=== PATIENT | female | born 1955 | race Caucasian/White ===

== ENCOUNTER 2017-06-05 05:47 | Inpatient (IN) | payer OTHER ==
[2017-05-18 08:30] VITALS: Ht 157.5 cm; Wt 65.9 kg
--- NOTE | 2017-06-04 11:42 | History and Physical ---
History & Physical Date Jun 04, 2017. Chief Complaint right knee pain History of Present Illness The patient is a 62 year old female with complaints of right knee pain for several years. Has tried nsaids and injections with no relief. pt only has rom of 85 degrees. Pt is ready for Right TKA Additional History Hepatic Disease: No Endocrine Disorder: No Kidney Disease: No Hypertension: Yes Heart Disease: No Bleeding Tendencies: No Infectious Diseases: No Allergies Coded Allergies: No Known Allergies (Unverified , 05/18/17) Home Medications Scheduled Cholecalciferol (Vitamin D), 5,000 UNITS PO QAM Fluticasone Furoate-Vilanterol (Breo Ellipta), 1 PUFF INH QAM Hydrochlorothiazide (Hctz), 25 MG PO QAM Lisinopril (Prinivil), 10 MG PO QAM Misc Natural Products (Turmeric Curcumin), 1 CAP PO QAM Multiple Vitamin (Multi Vitamin), 1 TAB PO QAM Physical Examination Skin: warm/dry, no rash Eyes: normal inspection, EOMI, sclerae normal ENT: normal ENT inspection, pharynx normal Head: normocephalic, atraumatic Neck: supple, no adenopathy, trachea midline Respiratory/Chest: lungs clear, normal breath sounds, no respiratory distress Cardiovascular: regular rate, rhythm, no edema, no murmur Abdomen / GI: normal bowel sounds, non tender Back: normal inspection Extremities: normal inspection, normal range of motion, + pertinent finding ( pain with rom right knee, decreased rom) Neurologic/Psych: no motor/sensory deficits, alert, normal reflexes, oriented x 3 Diagnosis DJD RIGHT KNEE Plan of Treatment PLAN IS FOR RIGHT TKA WITH DR HIRSCH
[~2017-06-05] VITALS: Ht 157.5 cm; Wt 65.9 kg
[2017-06-05] VITALS (10 sets, daily range): BP systolic 122–148; BP diastolic 70–81; PULSE 78–97; TEMP 36.4–36.8; O2SAT 94–99
[~2017-06-05 05:47] MED LIST: CHOL1TAB42 PO; FLUT1INH INH; HYDR25TA4 PO; LISI10TA PO; MISCCAP52 PO; MULT-1027 PO
[2017-06-05] MEDS ORDERED: LACTATED RINGER'S 1000ML 500 ML IV ONE (06:00)
[2017-06-05] MEDS ORDERED: ACETAMINOPHEN 500 MG TAB PO SCH (06:00)
[2017-06-05] MEDS ORDERED: LACTATED RINGER'S 1000ML IV SCH (06:00)
[2017-06-05] MEDS ORDERED: CeleBREX 200 MG CAP PO SCH (06:00)
[2017-06-05] MEDS ORDERED: DEXAMETHASONE 4 MG TAB PO SCH (06:00)
[2017-06-05] MEDS ORDERED: FAMOTIDINE 20 MG TAB PO SCH (06:00)
[2017-06-05] MEDS ORDERED: METOCLOPRAMIDE HCL 10 MG TAB PO SCH (06:00)
[2017-06-05] MEDS ORDERED: CEFAZOLIN 1000MG IV PUSH 5 ML IV SCH (06:00)
[2017-06-05] MEDS ORDERED: LACTATED RINGER'S 1000ML 1,000 ML IV SCH (06:00)
[2017-06-05] MEDS ORDERED: ROPIVACAINE 5MG/ML 30 ML 150 MG, BUPIVACAINE/EPINEPHR 0.5% MPF 30 ML, KETOROLAC TROMETH... INFIL SCH ×7 (06:00)
[2017-06-05] MEDS: TRANEXAMIC ACID INJ 1,000 MG in SODIUM CHLORIDE 0.9% 100ML 100 ML IV SCH ×2 (06:30→07:40)
[2017-06-05] MEDS ORDERED: BUPIVACAINE 0.25% 30 ML VIAL ONE (06:43)
[2017-06-05] MEDS ORDERED: BUPIVACAINE 0.5 % 5 MG/1 ML PF 10ML VIAL ONE (06:43)
--- NOTE | 2017-06-05 06:47 | History & Physical Bridge Note ---
H&P Re-Evaluation Bridge Note: I have examined the patient, reviewed the History & Physical and in the interval since the performance of the History & Physical I have noted the following changes of clinical significance: No changes noted
[2017-06-05] MEDS ORDERED: CALC-206 (06:48)
[2017-06-05] MEDS ORDERED: ASPI81TA28 PO (06:48)
[2017-06-05] MEDS ORDERED: ORTHO JOINT ANESTHETIC ONE (07:13)
[2017-06-05] MEDS ORDERED: POVIDONE-IODINE OP SOLN 30 ML BTL ONE (07:13)
[2017-06-05] MEDS ORDERED: MIDAZOLAM HCL 1 MG/ML 2ML VIAL ONE (07:13)
[2017-06-05] MEDS ORDERED: BACITRACIN 50000 UNIT VIAL ONE (07:13)
[2017-06-05] MEDS ORDERED: FENTANYL CITRATE INJ 50 MCG/1 ML 2 ML VIAL ONE (07:13)
[2017-06-05] MEDS ORDERED: EpHEDrine SULFATE 50MG/5ML SYR ONE (07:29)
[2017-06-05] MEDS ORDERED: PROPOFOL IV EMULSION 10 MG/ML 20 ML VIAL IV ONE (07:29)
[2017-06-05] MEDS ORDERED: LIDOCAINE HCL 2% 2 ML VIAL (20MG/ML) ONE (07:29)
[2017-06-05] MEDS ORDERED: PHENYLEPHRINE 100MCG/ML 5ML SYR ONE (07:29)
[2017-06-05] MEDS ORDERED: CEFAZOLIN SOD 1 GM VIAL ONE (08:14)
[2017-06-05] MEDS ORDERED: HYDROmorphone INJ 2 MG/ML SYR/VIAL IV PRN (08:15)
[2017-06-05] MEDS ORDERED: ATROPINE SULFATE 0.1 MG/ML 5ML SYR IV PRN (08:15)
[2017-06-05] MEDS ORDERED: EpHEDrine SULFATE INJ 50 MG/ML AMP IV PRN (08:15)
[2017-06-05] MEDS ORDERED: PHENYLEPHRINE 100MCG/ML 5ML SYR IV PRN (08:15)
[2017-06-05] MEDS ORDERED: ONDANSETRON INJ 2 MG/ML 2 ML VIAL IV PRN ×2 (08:15→09:30)
[2017-06-05] MEDS ORDERED: KETOROLAC TROMETHAMINE 30 MG/ML VIAL IV. PRN (08:15)
[2017-06-05] MEDS ORDERED: ALUMINUM/MAGNESIUM/SIMETH (MAALOX MAX) 30 ML UDC PO PRN (09:30)
[2017-06-05] MEDS ORDERED: OXYCODONE HCL IR 5 MG TAB (IMMEDIATE RELEASE) PO PRN (09:30)
[2017-06-05] MEDS ORDERED: ZOLPIDEM TARTRATE 5 MG TAB PO PRN (09:30)
[2017-06-05] MEDS ORDERED: MAGNESIUM HYDROXIDE SUSP 30 ML UDC PO PRN (09:30)
[2017-06-05] MEDS ORDERED: BISACODYL 10 MG SUPP PR PRN (09:30)
--- NOTE | 2017-06-05 09:34 | [facility] Operative Report ---
Operative Report Operative Date Jun 05, 2017. Pre-Operative Diagnosis Degenerative Joint Disease Right Knee Post-Operative Diagnosis Degenerative Joint Disease Right Knee Procedure(s) Performed Right Total Knee Arthroplasty Surgeon Dr. Johnson Dentist Private Practice Surgeon(s) Mehreen Nieto PA-C Estimated Blood Loss 10ml Findings As above Specimens A: right knee bone and tissue Complication(s) None Disposition Recovery Room / PACU Description of Procedure IMPLANTS USED: [employer] journey 2 knee size 3 cemented femoral component, a size 2 tibial component, a size 11 PS insert with size 35 all polyethylene patella INDICATIONS: pleasant male who has unfortunately failed all forms of conservative measures. Therefore, they have decided to undergo elective surgical intervention. All risks and benefits of the surgery were discussed with the patient and the family in entirety. PROCEDURE: The patient was brought to the operating room and properly identified by myself, anesthesia, and staff. Patient was given a spinal anesthesia and placed on the operating table in the supine position. Tourniquets were applied to the right upper thigh. The leg was then prepped and draped in usual sterile fashion. We made a standard midline approach over the patella and dissected down through the subcutaneous tissue to identify the capsule and performed a medial capsulotomy with the patella everted and the knee flexed.The patient matched implant was then put onto the femur. The femur measured to be a size 3. This was then put into place. We made the appropriate cuts and then placed a retractor behind the proximal tibia to retract anteriorly. We then placed the patient matched knee implant on the tibia. It measured to be a size [2]. A size 2guide was then put in place. We used the tibial punch then put the trial components into place. We had very good range of motion, excellent stability, and excellent patella tracking. We removed the trial components and irrigated the wound. We impacted the components in place using antibiotic cement. All excess cement was removed. We then irrigated the wound once more. We closed the capsule with 0 PDS suture , deep dermis and 2-0 Vicryl, and finally the skin with jefferson. A sterile dressing was applied. The patient was taken to the recovery room in stable condition. Due to the complex nature of the procedure, the entire surgery was performed with the operational assistance of Mehreen Paez pa-c. The cement tester assistant was under direct supervision, was involved in the actual performance of all aspects of the surgical procedure including hemostasis, tissue retraction and incision, instrument management, patient positioning, and wound closure. I attest to the content of the Intraoperative Record and any orders documented therein. Any exceptions are noted below.
--- NOTE | 2017-06-05 11:03 | Anesthesiology Progress Note ---
Anesthesia Post Op Note Date & Time Jun 05, 2017 at 11:02 Vital Signs Pain Intensity: 0 Vital Signs Past 12 Hours Date Time Temp Pulse Resp B/P (MAP) Pulse Ox O2 Delivery O2 Flow Rate FiO2 06/05/17 10:30 36.4 79 16 114/61 98 Oxymask 10 06/05/17 10:25 80 16 116/62 98 Nasal Cannula 2 06/05/17 10:22 110/63 06/05/17 10:20 80 16 93/48 98 Nasal Cannula 2 06/05/17 10:10 81 16 89/50 98 Nasal Cannula 2 06/05/17 10:00 83 16 83/49 98 Oxymask 10 06/05/17 09:52 36.4 82 16 86/53 98 Oxymask 10 06/05/17 07:05 36.8 91 20 148/81 94 Room Air Notes Mental Status: alert / awake / arousable, participated in evaluation Pt Amnestic to Procedure: Yes Nausea / Vomiting: adequately controlled Pain: adequately controlled Airway Patency, RR, SpO2: stable & adequate BP & HR: stable & adequate Hydration State: stable & adequate Anesthetic Complications: no major complications apparent
[2017-06-05] MEDS: SODIUM CHLORIDE 0.9% 1000ML 1,000 ML IV SCH ×2 (11:36→20:47)
[2017-06-05] MEDS: ACETAMINOPHEN 500 MG TAB PO SCH ×2 (14:03→21:42)
[2017-06-05] MEDS: CEFAZOLIN IV 2,000 MG in SYRINGE 0 ML IV SCH (15:53)
[2017-06-05] MEDS ORDERED: CEFAZOLIN IV 2 MG in DEXTROSE 5% 50ML 50 ML IV SCH (16:00)
[2017-06-05] MEDS ORDERED: TRANEXAMIC ACID INJ 1,000 MG in SODIUM CHLORIDE 0.9% 100ML 100 ML IV SCH (17:00)
[2017-06-05] MEDS: ASPIRIN 81 MG ECTAB PO SCH (20:47)
[2017-06-05] MEDS: DOCUSATE SODIUM 100 MG CAP PO SCH (20:47)
[2017-06-06] MEDS: CEFAZOLIN IV 2,000 MG in SYRINGE 0 ML IV SCH (00:03)
[2017-06-06 03:04] VITALS: BP 138/66; PULSE 86; TEMP 36.5; O2SAT 93
[2017-06-06] MEDS: ACETAMINOPHEN 500 MG TAB PO SCH (05:57)
[2017-06-06] MEDS: SODIUM CHLORIDE 0.9% 1000ML 1,000 ML IV SCH (05:57)
[2017-06-06 07:01] VITALS: BP 143/84; PULSE 80; TEMP 36.7; O2SAT 97
--- NOTE | 2017-06-06 07:28 | Anesthesiology Progress Note ---
Anesthesia Post Op Note Date & Time Jun 06, 2017 at 07:28 Vital Signs Vital Signs Past 12 Hours Date Time Temp Pulse Resp B/P (MAP) Pulse Ox O2 Delivery O2 Flow Rate FiO2 06/06/17 07:01 36.7 80 18 143/84 (103) 97 Room Air 06/06/17 03:04 36.5 86 17 138/66 (90) 93 Room Air 06/06/17 00:02 Room Air 06/05/17 23:12 36.4 81 16 137/77 (97) 95 Room Air 06/05/17 20:57 95 Room Air Notes Mental Status: alert / awake / arousable, participated in evaluation Pt Amnestic to Procedure: Yes Nausea / Vomiting: adequately controlled Pain: adequately controlled Airway Patency, RR, SpO2: stable & adequate BP & HR: stable & adequate Hydration State: stable & adequate Neuraxial Anesthesia: sensory block resolved Anesthetic Complications: no major complications apparent
[2017-06-06] MEDS ORDERED: DEXAMETHASONE INJ 10 MG in SYRINGE 0 ML IV ONE (07:30)
[2017-06-06] MEDS: ASPIRIN 81 MG ECTAB PO SCH (08:37)
[2017-06-06] MEDS: DOCUSATE SODIUM 100 MG CAP PO SCH (08:37)
--- NOTE | 2017-06-06 08:39 | DISCHARGE SUMMARY ---
DISCHARGE DIAGNOSIS: Degenerative joint disease, right knee. SECONDARY DIAGNOSIS: None. CONSULTS: None. COMPLICATIONS: None. PROCEDURE: The patient underwent a right total knee arthroplasty with Dr. Johnson on 06/05/2017. BRIEF HISTORY: Please see previously dictated history and physical. HOSPITAL SUMMARY: The patient was admitted on the above day for the above procedure. Procedure went without complication. Postop day 1, the patient was feeling well without complaints. She denied chest pain or shortness of breath. Vital signs were stable. She was afebrile. Dressing was clean, dry and intact. She was neurovascularly intact. Calves were soft and nontender. Hemoglobin was not ordered. The patient progressed with physical therapy. She was discharged to home later that day in stable condition. For further review please see the chart. Lab, x-ray data and discharge instructions as per chart.
[2017-06-06] MEDS ORDERED: ULT50X PO (08:47)
[2017-06-06] MEDS ORDERED: CLB200 PO ×2 (08:47→15:39)
[2017-06-06] MEDS ORDERED: ACET-24 PO (08:47)
[2017-06-06] MEDS ORDERED: ASPI81TA28 PO (08:47)
[2017-06-06] MEDS ORDERED: ONDA8TAB6 PO ×2 (08:47→15:40)
--- NOTE | 2017-06-06 08:49 | Discharge Instructions ---
Discharge Instructions Date of Service Jun 06, 2017. Admission Reason for Admission: Right Knee Osteoarthritis Discharge Discharge Diagnosis / Problem: SP RIGHT TKA Discharge Goals Goal(s): Decrease discomfort, Improve function, Increase independence Activity Recommendations Activity Limitations: per Instructions/Follow-up section . Instructions / Follow-Up Instructions / Follow-Up ACTIVITY RECOMMENDATIONS: SELF CARE INSTRUCTIONS AFTER TOTAL KNEE REPLACEMENT A. You may need to continue a physical therapy program after discharge from the hospital. There are several options available to you. Your doctor will assist you in selecting the best one for you. 1. An out-patient facility 2 to 3 times a week for therapy or home therapy. 2. Continue working on all exercises taught to you in the hospital. Your goals should be to increase bending of your knee to 90 degrees and beyond and to fully straighten your knee. B. You may progress at your own pace from walking with a walker or crutches to a cane; then to no assistive devices. C. Make walking a part of your daily routine. Be up as much as comfortable with rest periods throughout the day. Rest with leg elevation is very important. Use the ice wrap frequently for the first 3-4 weeks. D. There are no restrictions on activities. You may ride in a car, shop, participate in respite coordinator and all social activities. E. Wear the long elastic stockings (ELIANE hose) 20 hours a day for 2 weeks after surgery. They can be removed several times a day for laundering and for a bath. F. You may shower, no tub baths until cleared by your doctor. SPECIAL CARE INSTRUCTIONS: VERY IMPORTANT TO READ AND REVIEW A. There are a few signs you need to watch for after you are home. Call [facility] if you notice any of the followin. Increased severe knee pain. Some pain is expected especially when you exercise. 2. Increased swelling in your leg or knee; pain or swelling of the calf muscle in either lower leg. 3. Any fluid drainage from the incision. 4. Shortness of breath or chest pain. B. Please call [facility] at if you have any concerns or questions about your operation or recovery. The doctor or his nurse will return your call promptly. C. You must take antibiotics before dental work, bladder, bowel or other surgery. Your doctor will provide you with a permanent care to carry describing this precaution. IMPORTANT: * REMEMBER TO TAKE ASPIRIN, 81 MG, TWICE DAILY FOR 4 WEEKS UNLESS OTHERWISE DIRECTED. THIS IS YOUR BLOOD THINNER. * HIGH RISK PATIENTS MAY BE PRESCRIBED A STRONGER BLOOD THINNER. THIS WILL BE PROVIDED AT DISCHARGE. * CALL IF INCREASED PAIN, REDNESS, DRAINAGE OR FEVER GREATER THAT 101. * WEAR ELIANE HOSE 20 HOURS PER DAY FOR 2 WEEKS. DERMABOND Prineo- This is a mesh tape dressing that is covered with glue. It should remain in place until the incision is properly healed, usually 10-14 days. This dressing is designed to naturally slough off. You may trim the excess mesh tape as it peels off. Incision may be briefly wet in a shower. Dry immediately by blotting with a clean, dry towel. Do not bath or swim until instructed by your doctor. Do not scratch, rub, or pick at the dressing. Do not apply any topical ointments or lotions until dressing is completely removed and/or instructed by your doctor. There may be a small piece of suture material at one end of your incision. Do not pull or trim this. If it is bothersome or catching on clothing, you may cover it with a band-aid. FOLLOW UP VISIT: If appointment is not already scheduled: Please call [facility] to make a follow-up appointment for 2 weeks after your surgery at . Current Hospital Diet Patient's current hospital diet: Regular Diet Discharge Diet Recommended Diet: Regular Diet Procedures Procedures Performed: Right Total Knee Arthroplasty Pending Studies Studies pending at discharge: no Medical Emergencies . Who to Call and When: Medical Emergencies: If at any time you feel your situation is an emergency, please call 911 immediately. . Non-Emergent Contact Non-Emergency issues call your: Surgeon . "Provider Documentation" section prepared by Shivani Paez. . VTE Core Measure Inpt VTE Proph given/why not?: Other Anticoagulation, T.E.D. Stockings, SCD's
[2017-06-06] MEDS ORDERED: HYDROCHLOROTHIAZIDE 25 MG TAB PO SCH (09:00)
[2017-06-06] MEDS ORDERED: MULTIVITAMIN TAB PO SCH (09:00)
[2017-06-06] MEDS ORDERED: LISINOPRIL 10 MG TAB PO SCH (09:00)
[2017-06-06] MEDS ORDERED: TRAMADOL HCL 50 MG TAB PO PRN (09:00)
[2017-06-06 11:10] VITALS: BP 161/97; PULSE 90; TEMP 36.8; O2SAT 99
[2017-06-06 11:49] VITALS: BP 161/97; PULSE 90; TEMP 36.8; O2SAT 99
== END 2017-06-06 13:20 | disposition home or self-care (01) | DRG 470 ==
LOC: C.ACU 05:47 → C.3E 07:10 → ENRESERV 10:34
PROVIDERS: ADMIT Orthopaedic Surgery; ATTEND Orthopaedic Surgery
PROC: 0SRC0J9 Replacement of Right Knee Joint with Synthetic Substitute, Cemented, Open Approach (ICD-10-PCS; principal; 2017-06-05 08:00)
DX: M17.11 Unilateral primary osteoarthritis, right knee (principal); I10 Essential (primary) hypertension